=== PATIENT | female | born 1985 | race Caucasian/White ===

== ENCOUNTER 2019-09-02 01:03 | Inpatient (IN) | payer SELFPAY ==
[~2019-09-02] VITALS: Ht 160 cm; Wt 60.7 kg
[2019-09-02] VITALS (12 sets, daily range): BP systolic 118–150; BP diastolic 73–106
[~2019-09-02 01:03] MED LIST: ALBU2.5V8 INH; IPRA3AMP29 NEB
[2019-09-02 01:45] LABS: BASO # 0.1 x10^3/uL (0.0-0.2); BASO % 1 % (0-3); EOS # 0.5 x10^3/uL (0.0-0.7); EOS % 5 % (0-3); HEMATOCRIT 42.2 % (36.0-47.0); HEMOGLOBIN 14.3 g/dL (12.0-15.5); LYMPH # 3.2 x10^3/uL (1.0-4.8); LYMPH % 30 % (24-48); MEAN CORPUSCULAR HEMOGLOBIN 29 pg (25-35); MEAN CORPUSCULAR HGB CONC 34 g/dL (31-37); MEAN CORPUSCULAR VOLUME 84 fL (79-100); MONO # 1.2 x10^3/uL (0.0-1.1); MONO % 11 % (0-9); NEUT # 5.8 x10^3uL (1.8-7.7); NEUT % 54 % (31-73); PLATELET COUNT 212 x10^3/uL (140-400); RED BLOOD COUNT 5.01 x10^6/uL (3.50-5.40); RED CELL DISTRIBUTION WIDTH 13.8 % (11.5-14.5); WHITE BLOOD COUNT 10.8 x10^3/uL (4.0-11.0)
[2019-09-02 02:00] LABS: ALBUMIN 3.2 g/dL (3.4-5.0); ALBUMIN/GLOBULIN RATIO 0.7 (1.0-1.7); CALCIUM 9.1 mg/dL (8.5-10.1); GFR 62.7; TOTAL BILIRUBIN 0.3 mg/dL (0.2-1.0); TOTAL PROTEIN 7.8 g/dL (6.4-8.2)
[2019-09-02 02:05] LABS: POTASSIUM 2.6 mmol/L (3.5-5.1)
--- NOTE | 2019-09-02 02:12 | RAD ---
AP portable chest radiograph 09/01/2019 Clinical History: Chest pain. An AP erect portable digital radiograph of the chest was obtained. A right internal jugular central venous catheter is seen with its tip extending to overlie the superior vena cava. The cardiac and mediastinal silhouettes are within normal limits in size and configuration. No acute pulmonary infiltrate is seen. No pleural effusion or pneumothorax is noted. The osseous structures are grossly intact. IMPRESSION: No acute abnormality is seen. Electronically signed by: Laron Cope MD (09/02/2019 2:09 AM) [id number]
[2019-09-02] MEDS ORDERED: POTASSIUM CHLORIDE 20 MEQ TABLET.ER. PO ONE ×2 (02:15→02:30)
--- NOTE | 2019-09-02 02:20 | PHYS DOC ---
Past History Past Medical History: Asthma, Diabetes, Other Additional Past Medical Histor: cervical/uterine CA-told can't do anything spread to far Past Surgical History: No Surgical History Alcohol Use: None Drug Use: None General Adult EDM: Chief Complaint: CHEST PAIN HPI: HPI: 34-year-old female presents with chest pain. The patient has been having intermittent chest discomfort which she describes as a tightness and spasming sensation. Tonight, the patient had an episode where she felt suddenly weak, collapsed to the floor and felt like she had cramping muscles all over. The pain then radiated up into her chest and she had chest pain that lasted for about 40 minutes and began to subside right before EMS transport. Patient states she has had a heart attack in the past. She tells me that she has terminal cervical and uterine cancer. She is on high-dose pain medications such as Dilaudid. She has a right-sided PICC line. Patient denies fever chills. Review of Systems: Review of Systems: Constitutional: Denies fever or chills Eyes: Denies change in visual acuity HENT: Denies nasal congestion or sore throat Respiratory: Denies cough or shortness of breath Cardiovascular: Chest pain GI: Denies abdominal pain, nausea, vomiting, bloody stools or diarrhea : Denies dysuria Musculoskeletal: Generalized muscle cramping Integument: Denies rash Neurologic: Denies headache, focal weakness or sensory changes Endocrine: Denies polyuria or polydipsia Lymphatic: Denies swollen glands Psychiatric: Denies depression or anxiety Heart Score: HEART Score for Chest Pain: HEART Score for Chest Pain Response (Comments) Value History Slighlty/Non-Suspicious 0 ECG Normal 0 Risk Factors 1 or 2 Risk Factors 1 Total 1 Risk Factors: Risk Factors: DM, Current or recent (<one month) smoker, HTN, HLP, family history of CAD, obesity. Risk Scores: Score 0 - 3: 2.5% MACE over next 6 weeks - Discharge Home Score 4 - 6: 20.3% MACE over next 6 weeks - Admit for Clinical Observation Score 7 - 10: 72.7% MACE over next 6 weeks - Early Invasive Strategies Current Medications: Current Meds: Current Medications Medications (Trade) Dose Ordered Sig/Kathy Start Time Stop Time Status Last Admin Dose Admin Hydromorphone HCl (Dilaudid) 1 mg 1X ONCE 09/02/19 02:30 09/02/19 02:31 Ondansetron HCl (Zofran) 4 mg 1X ONCE 09/02/19 02:30 09/02/19 02:31 Potassium Chloride/Sodium Chloride 1,000 ml @ 125 mls/hr 1X ONCE 09/02/19 02:30 09/02/19 10:29 Potassium Chloride (Klor-Con) 40 meq 1X ONCE 09/02/19 02:30 09/02/19 02:31 Allergies: Allergies: Allergies Coded Allergies Type Severity Reaction Last Updated Verified Sulfa (Sulfonamide Antibiotics) Allergy Unknown 11/25/15 Yes diphenhydramine Allergy Unknown 11/25/15 Yes ketorolac Allergy Unknown 11/25/15 Yes morphine Allergy Unknown 11/25/15 Yes sulfamethoxazole Allergy Unknown 11/25/15 Yes trimethoprim Allergy Unknown 11/25/15 Yes Physical Exam: PE: Constitutional: Well developed, well nourished, no acute distress, non-toxic appearance. [] HENT: Normocephalic, atraumatic, bilateral external ears normal, oropharynx moist, no oral exudates, nose normal. [] Eyes: PERRLA, EOMI, conjunctiva normal, no discharge. [] Neck: Normal range of motion, no tenderness, supple, no stridor. [] Cardiovascular: Heart rate regular rhythm, no murmur [] Lungs & Thorax: Bilateral breath sounds clear to auscultation [] Abdomen: Bowel sounds normal, soft, no tenderness, no masses, no pulsatile masses. [] Skin: Right chest wall central line with no cap. [] Back: No tenderness, no CVA tenderness. [] Extremities: No tenderness, no cyanosis, no clubbing, ROM intact, no edema. [] Neurologic: Alert and oriented X 3, normal motor function, normal sensory function, no focal deficits noted. [] Psychologic: Affect normal, judgement normal, mood anxious. [] Current Patient Data: Labs: Laboratory Tests Test 09/02/19 01:30 White Blood Count 10.8 x10^3/uL (4.0-11.0) Red Blood Count 5.01 x10^6/uL (3.50-5.40) Hemoglobin 14.3 g/dL (12.0-15.5) Hematocrit 42.2 % (36.0-47.0) Mean Corpuscular Volume 84 fL (79-100) Mean Corpuscular Hemoglobin 29 pg (25-35) Mean Corpuscular Hemoglobin Concent 34 g/dL (31-37) Red Cell Distribution Width 13.8 % (11.5-14.5) Platelet Count 212 x10^3/uL (140-400) Neutrophils (%) (Auto) 54 % (31-73) Lymphocytes (%) (Auto) 30 % (24-48) Monocytes (%) (Auto) 11 % (0-9) H Eosinophils (%) (Auto) 5 % (0-3) H Basophils (%) (Auto) 1 % (0-3) Neutrophils # (Auto) 5.8 x10^3uL (1.8-7.7) Lymphocytes # (Auto) 3.2 x10^3/uL (1.0-4.8) Monocytes # (Auto) 1.2 x10^3/uL (0.0-1.1) H Eosinophils # (Auto) 0.5 x10^3/uL (0.0-0.7) Basophils # (Auto) 0.1 x10^3/uL (0.0-0.2) Sodium Level 136 mmol/L (136-145) Potassium Level 2.6 mmol/L (3.5-5.1) *L Chloride Level 96 mmol/L (98-107) L Carbon Dioxide Level 26 mmol/L (21-32) Anion Gap 14 (6-14) Blood Urea Nitrogen 19 mg/dL (7-20) Creatinine 1.0 mg/dL (0.6-1.0) Estimated GFR (Cockcroft-Gault) 62.7 BUN/Creatinine Ratio 19 (6-20) Glucose Level 95 mg/dL (70-99) Calcium Level 9.1 mg/dL (8.5-10.1) Total Bilirubin 0.3 mg/dL (0.2-1.0) Aspartate Amino Transferase (AST) 36 U/L (15-37) Alanine Aminotransferase (ALT) 49 U/L (14-59) Alkaline Phosphatase 104 U/L (46-116) Troponin I Quantitative < 0.017 ng/mL (0-0.055) Total Protein 7.8 g/dL (6.4-8.2) Albumin 3.2 g/dL (3.4-5.0) L Albumin/Globulin Ratio 0.7 (1.0-1.7) L Vital Signs: Vital Signs Date Time Temp Pulse Resp B/P (MAP) Pulse Ox O2 Delivery O2 Flow Rate FiO2 09/02/19 01:03 18 129/90 (103) Room Air EKG: EKG: Sinus rhythm, rate 91, leftward axis, no ST elevations or depressions. [] Radiology/Procedures: Radiology/Procedures: [] Impressions: AP portable chest radiograph 09/01/2019 Clinical History: Chest pain. An AP erect portable digital radiograph of the chest was obtained. A right internal jugular central venous catheter is seen with its tip extending to overlie the superior vena cava. The cardiac and mediastinal silhouettes are within normal limits in size and configuration. No acute pulmonary infiltrate is seen. No pleural effusion or pneumothorax is noted. The osseous structures are grossly intact. IMPRESSION: No acute abnormality is seen. Electronically signed by: Laron Espino MD (09/02/2019 2:09 AM) [id number] DICTATED AND SIGNED BY: LARON ESPINO MD DATE: 09/02/19 0209 CC: ADRIANA MORRIS DO; PCP,NO ~ Course & Med Decision Making: Course & Med Decision Making Pertinent Labs and Imaging studies reviewed. (See chart for details) The patient's EKG is unremarkable. Her troponin is negative. Her chest x-ray is negative for acute findings. It does show a central line. See official report for details. Her labs do have a critical potassium of 2.6. We will give her potassium by IV as well as orally. I will admit her to the hospital. I spoke with Dr. Ramirez and he has accepted the patient for admission. I have given the patient 4 mg of Zofran and 2 milligram of Dilaudid IV. [] Dragon Disclaimer: Dragon Disclaimer: This electronic medical record was generated, in whole or in part, using a voice recognition dictation system. Departure Departure: Impression: Primary Impression: Hypokalemia Additional Impressions: Chest pain Qualified Codes: R07.9 - Chest pain, unspecified Uterine cervix cancer Qualified Codes: C53.9 - Malignant neoplasm of cervix uteri, unspecified Disposition: 09 ADMITTED INPATIENT Admitting Physician: Benjamin Ramirez Condition: STABLE Referrals: PCP,NO (PCP) ADRIANA MORRIS DO September 02, 2019 02:20
[2019-09-02] MEDS ORDERED: HYDROmorphone PF 1 MG/ML DISP.SYRIN IV ONE (02:30)
[2019-09-02] MEDS ORDERED: HYDROmorphone PF 1 MG/ML DISP.SYRIN IV PRN (02:30)
[2019-09-02] MEDS ORDERED: POTASSIUM CL 40MEQ IN 0.9%NACL 1,000 ML IV ONE (02:30)
[2019-09-02] MEDS ORDERED: ONDANSETRON PF 4 MG/2 ML VIAL. IVP ONE ×2 (02:30→04:00)
[2019-09-02] MEDS ORDERED: ONDANSETRON PF 4 MG/2 ML VIAL. IVP PRN (02:30)
[2019-09-02] MEDS ORDERED: HYDROmorphone PF 2 MG/ML VIAL IV ONE (03:00)
[2019-09-02] MEDS: POTASSIUM CHLORIDE 20 MEQ TABLET.ER. PO SCH ×3 (05:35→06:29)
[2019-09-02] MEDS ORDERED: CONTRAST GIVEN MC PRN (05:45)
[2019-09-02] MEDS ORDERED: IOHEXOL 350 MG/ML 100 ML VIAL. IV ONE (06:00)
[2019-09-02] MEDS: POTASSIUM CHLORIDE 10MEQ 100 ML IV SCH ×8 (06:00→13:00)
[2019-09-02 06:17] LABS: BARBITURATES POS (NEG); BENZODIAZEPINES NEG (NEG); CANNABINOIDS NEG (NEG); COCAINE NEG (NEG); METHADONE NEG (NEG); OPIATES POS (NEG); PHENCYCLIDINE NEG (NEG)
[2019-09-02 06:22] LABS: AMPHETAMINE/METHAMPHETAMINE NEG (NEG)
[2019-09-02] MEDS: HYDROmorphone PF 1 MG/ML DISP.SYRIN IV PRN ×4 (06:22→12:15)
[2019-09-02] MEDS ORDERED: ANTI-COAG MONITOR BY PHARMACY. MC PRN (06:30)
[2019-09-02] MEDS: ENOXAPARIN ** NOTE DOSE ** SYRINGE SQ SCH ×2 (06:30→21:51)
--- NOTE | 2019-09-02 06:41 | EKG ---
[address] [address] Test Date: 2019-09-02 Test Time: 01:17:56 Pat Name: LIAN RODRIGUEZ Department: Room: 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
--- NOTE | 2019-09-02 08:11 | EKG ---
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
--- NOTE | 2019-09-02 08:38 | PDOC2 ---
CARDIAC CONSULT DATE OF CONSULT Date Of Consult DATE: 09/02/19 TIME: 08:14 REASON FOR CONSULT Reason for Consult Chest pain, elevated troponin REFERRING PHYSICIAN Referring Physician Dr. Ramirez SOURCE Source: Chart review, Patient HPI History of Present Illness This is a 34 yo female who presented secondary to increased chest pain and shortness. Patient presently incoherent. Trashing in bed and moaning in pain. Discussed case with both sister and boyfriend. Patient has a history of endometrial and cervical CA. Diagnosed 2018. Underwent bilateral fallopian tube removal. This was conducted through [facility]. Has second opinion at , which is noted below. Family reports her cancer to be advanced and terminal. Sister reports she has be praying for God to take her to end her pain. Family reports that she has been with Hospice since late last year. Was on Dilaudid NEON ELECTRICIAN pump. Unfortunately, this was discontinued last week due to reported national shortage. Was started on oral therapy at that time. Boyfriend, who she reside with, reports she has not been doing well this past week since they discontinued her pain pump. Has been having markedly increased pain including chest pain and has been more weak. Over the weekend, there was reported concerns of potential overdose as her bottle of ketamine was broke open. Boyfriend thinks she possibly fell and broke the bottle open as it was knocked over and smashed. Nonetheless, she was recommend to go to the [facility] for increasing pain or to the ED for further evaluation and treatment. Patient declined both of these and the decision was made to discontinue services through Hospice. Yesterday, boyfriend reports she was carrying laundry down the stairs and experienced significant chest pain and shortness of breath. Boyfriend reports she dropped to her knees and told him to call 911. EMS transported her to the ED department for further evaluation and treatment. Boyfriend reports her chest pain to be somewhat chronic in nature. EKG with ischemic changes overnight and troponin noted to elevated upon arrival. D-dimer also elevated. Unfortunately, have been unable to get CTA as patient is thrashing and unable to sit still for imaging. Records from ; [employer] office visit. Date 04/30/18 History of Present Illness: Janice Retana is a 33 y.o. 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 Feeling well overall. Complains of increased anxiety, fatigue. Has sinus pressure, sore throat and recent voice changes. Few month history of irregular bleeding, pelvic pain, abnormal discharge, vaginal pain and dysuria. Endometrial cancer (HCC) 03/10/2018 Pertinent History Pap ASC-H, HPV neg 03/25/2018 Imaging MRI - intermediate T2 signal material in endometrial canal 2.9x1.1x2.8 cm with smaller area in endocervical canal 1.8x0.5 cm. No evidence of invasion into the myometrium. No pelvic lymphadenopathy. 03/25/2018 Imaging MRI - ~3cm mass at the fundus, similar 1.8cm mass in the endocervical canal, no noted invasion into the myometrium or parametrium 04/03/2018 Surgery [facility], [facility], D&C 04/03/2018 Pathology * Cervix excision - Invasive keratinizing poorly differentiated squamous cell carcinoma, involving endocervical, ectocervical, and deep resection margins. * ECC- Negative for dysplasia or malignancy. * EMC: Endometrioid adenocarcinoma, FIGO grade 1 04/03/2018 Surgery [facility], D&C with Dr Arian Ngo - Findings cervix 4cm in diameter, no evidence of parametrial invasion 04/14/[address] - No evidence of metastatic disease 04/21/2018 Imaging PET - Hypermetabolic mass occupying the fundus of the uterus, correlating with the lesion see on recent pelvic MRI. This is a smaller and less metabolically a ctive focus of increased uptake in the region of the cervix which appears to correlate with the nodule seen on recent MR. No gross evidence of regional or distant metastatic disease 04/28/2018 Pertinent History Post op fu - recommendation for chemoradiation for treatment of endometrial and cervical cancer followed by simply hysterectomy ASSESSMENT/PLAN: Jancie Retana is a 33 y.o. 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 Reviewed imaging, operative reports and path with patient. Initial plan on a second path review here and to review in tumor board. An extensive discussion was held with the patient over approximately 45 minutes, during which time we discussed the treatment options for early stage cervical carcinoma. We discussed that these tumors can be treated either surgically or with radiation therapy. I noted that if the lesion meets the criteria for microinvasion and is thus associated with a low risk for parametrial or lymph node metastasis, that consideration can be given to treatment of the cancer with extrafascial hysterectomy. Otherwise, the treatment of choice would be a radical hysterectomy and pelvic lymphadenectomy versus radiation therapy comprised both of external beam radiation therapy and brachytherapy if the lesion is of early stage. We discussed the potential risks for either radiation therapy or surgical treatment. With regard to surgical treatment, I noted that the risks are primarily the risks related to an operation, although I noted that with a pelvic lymphadenectomy that there is the risk for lymphedema and lymphocysts. We also discussed the relatively common occurrence of bladder dysfunction that can occur after radical hysterectomy and also, we discussed the low risk of injury to the GI or tract with radical hysterectomy as well as the low risk of significant perioperative medical complications. With regard to radiation therapy, I noted that radiation therapy treatment is tolerated extremely well but that the risks are more jail, including the risks of significant damage occurring in the GI or tract, the risk of developing a tumor in the radiated field, the risk of developing a noncompliant and foreshortened vagina, and the risk of premature ovarian failure. We also discussed her diagnosis of low grade endometrial adenocarcinoma. A detailed discussion was held with the patient with regard to to her cancer diagnosis. We discussed the standard management options for uterine cancer, noting that the standard of care involved surgical staging followed by consideration of adjuvant therapies including hormone therapy, chemotherapy, or radiation therapy if indicated. We discussed alternatives to surgery including radiation therapy and hormonal therapy noting that these are not as effective as surgery for definitive treatment of uterine cancer. We discussed the surgical staging approach which involves performing hysterectomy, bilateral salpingo- oophorectomy, possible omentectomy, and pelvic and periaortic lymph node sampling. We discussed operative approaches including robotic versus conventional laparotomy and the pros and cons of either approach. I also di scussed data from the Lap 2 study, which did not prove non inferiority of a laparoscopic approach over a open approach, but which was not powered sufficiently to do so, and survival rates were identical in the two arms of the study. Reviewed treatment modalities for her concurrent diagnosis. Discussed that a radical hysterectomy could treat both and my operative and path findings, she appears to be a candidate for surgical mgmt of her cervical cancer. It should be noted that patient left before due to anxiety before a pelvic exam could be performed and did not want to schedule follow up. We did give her a card with contact information. Prior to her leaving, we discussed treatment options. Pt is very hesitant to consider radical hysterectomy and expressed interest in chemoradiation (but said she did not want chemotherapy.) If this was the treatment modality, I would recommend an attempt at oophoropexy prior to starting in an attempt to protect her ovarian function. We did discuss the 50% failure rate. We also reviewed this could be done at time of radical hysterectomy to protect her ovaries if she required adjuvant radiation. If proceeding with radiation, we reviewed that this could treat both her cervical and her endometrial cancers. I would be concerned about risk of complications with following radiation with hysterectomy if no evidence of residual disease. Pt said she would consider these treatment options but refused exam today due to anxiety. Did not want to schedule follow up at this time. Today's visit comprised over 55 minutes, with most of the time dedicated to face to face discussion. Fernando Harp MD PAST MEDICAL HISTORY Pulmonary: Asthma Heme/Onc: Cancer (advanced cervical and uterine CA) Endocrine: Diabetes PAST SURGICAL HISTORY Past Surgical History: No pertinent history FAMILY HISTORY Family History: Diabetes, Hypertension SOCIAL HISTORY Smoke: 1 pack per day ALCOHOL: none Drugs: None Lives: Friends (boyfriend) CURRENT MEDICATIONS Current Medications Current Medications Hydromorphone HCl (Dilaudid) 1 mg 1X ONCE IV Last administered on 09/02/19at 02:22; Start 09/02/19 at 02:30; Stop 09/02/19 at 02:31; Status DC Ondansetron HCl (Zofran) 4 mg 1X ONCE IVP Last administered on 09/02/19at 02:21; Start 09/02/19 at 02:30; Stop 09/02/19 at 02:31; Status DC Potassium Chloride (Klor-Con) 40 meq 1X ONCE PO Last administered on 09/02/19at 02:23; Start 09/02/19 at 02:30; Stop 09/02/19 at 02:31; Status DC Potassium Chloride/Sodium Chloride 1,000 ml @ 125 mls/hr 1X ONCE IV Last administered on 09/02/19at 02:23; Start 09/02/19 at 02:30; Stop 09/02/19 at 10:29 Potassium Chloride (Klor-Con) 20 meq STK-MED ONCE PO ; Start 09/02/19 at 02:15; Stop 09/02/19 at 02:15; Status DC Ondansetron HCl (Zofran) 4 mg PRN Q4HRS PRN IVP NAUSEA/VOMITING; Start 09/02/19 at 02:30; Stop 09/03/19 at 02:29 Hydromorphone HCl (Dilaudid) 1 mg PRN Q2HR PRN IV PAIN Last administered on 09/02/19at 03:03; Start 09/02/19 at 02:30; Stop 09/02/19 at 06:17; Status DC Hydromorphone HCl (Dilaudid) 2 mg 1X ONCE IV ; Start 09/02/19 at 03:00; Stop 09/02/19 at 03:01; Status DC Ondansetron HCl (Zofran) 4 mg 1X ONCE IVP Last administered on 09/02/19at 03:33; Start 09/02/19 at 04:00; Stop 09/02/19 at 04:01; Status DC Lorazepam (Ativan Inj) 1 mg 1X ONCE IVP Last administered on 09/02/19at 05:35; Start 09/02/19 at 05:30; Stop 09/02/19 at 05:31; Status DC Potassium Chloride (Klor-Con) 40 meq Q1HR PO Last administered on 09/02/19at 05:35; Start 09/02/19 at 05:00; Stop 09/02/19 at 07:01; Status DC Iohexol (Omnipaque 350 Mg/ml) 75 ml 1X ONCE IV ; Start 09/02/19 at 06:00; Stop 09/02/19 at 06:01; Status DC Info (Do NOT chart on this entry -- for MONITORING) 1 each PRN DAILY PRN MC SEE COMMENTS; Start 09/02/19 at 05:45; Stop 09/04/19 at 05:44 Potassium Chloride 100 ml @ 100 mls/hr Q1H IV ; Start 09/02/19 at 06:00; Stop 09/02/19 at 09:59 Potassium Chloride 100 ml @ 100 mls/hr Q1H IV ; Start 09/02/19 at 10:00; Stop 09/02/19 at 13:59 Enoxaparin Sodium (Lovenox 60mg Syringe) 60 mg Q12HR SQ ; Start 09/02/19 at 06:30 Info (Anti-Coagulation Monitoring By Pharmacy) 1 each PRN DAILY PRN MC SEE COMMENTS; Start 09/02/19 at 06:30 Hydromorphone HCl (Dilaudid) 2 mg PRN Q3HRS PRN IV PAIN Last administered on 09/02/19at 08:02; Start 09/02/19 at 06:15 Enoxaparin Sodium (Lovenox 60mg Syringe) 60 mg Q12HR SQ ; Start 09/02/19 at 09:00; Status UNV Aspirin (Aspirin Rectal Supp) 300 mg 1X ONCE IA ; Start 09/02/19 at 08:15; Stop 09/02/19 at 08:16; Status UNV Active Scripts Active Reported Duoneb 0.5-3(2.5) Mg/3 Ml (Albuterol/Ipratropium) 3 Ml Ampul.neb 3 Ml NEB QID Proair Hfa Inhaler (Albuterol Sulfate) 8.5 Gm Hfa.aer.ad 1 Puff INH PRN Q6HRS PRN ALLERGIES Allergies: Coded Allergies: Sulfa (Sulfonamide Antibiotics) (Verified Allergy, Unknown, 11/25/15) diphenhydramine (Verified Allergy, Unknown, 11/25/15) ketorolac (Verified Allergy, Unknown, 11/25/15) morphine (Verified Allergy, Unknown, 11/25/15) sulfamethoxazole (Verified Allergy, Unknown, 11/25/15) trimethoprim (Verified Allergy, Unknown, 11/25/15) ROS Review of Systems unobtainable PHYSICAL EXAM General: Alert, mild distress, Other (moaning ) HEENT: Atraumatic, Mucous membr. moist/pink Lungs: Clear to auscultation Heart: Other (ST- rate 125) Abdomen: Soft Extremities: No edema Skin: No breakdown Neuro: Other (thrashing in bed) Psych/Mental Status: Other (incoherent ) VITALS Vital Signs Vital Signs Date Time Temp Pulse Resp B/P (MAP) Pulse Ox O2 Delivery O2 Flow Rate FiO2 09/02/19 08:02 93 Room Air 0.0 09/02/19 06:22 34 09/02/19 05:00 125 130/88 (102) 09/02/19 04:00 97.0 LABS LABS Laboratory Tests Test 09/02/19 01:30 09/02/19 04:45 09/02/19 05:20 09/02/19 05:44 White Blood Count 10.8 x10^3/uL (4.0-11.0) Red Blood Count 5.01 x10^6/uL (3.50-5.40) Hemoglobin 14.3 g/dL (12.0-15.5) Hematocrit 42.2 % (36.0-47.0) Mean Corpuscular Volume 84 fL (79-100) Mean Corpuscular Hemoglobin 29 pg (25-35) Mean Corpuscular Hemoglobin Concent 34 g/dL (31-37) Red Cell Distribution Width 13.8 % (11.5-14.5) Platelet Count 212 x10^3/uL (140-400) Neutrophils (%) (Auto) 54 % (31-73) Lymphocytes (%) (Auto) 30 % (24-48) Monocytes (%) (Auto) 11 % (0-9) Eosinophils (%) (Auto) 5 % (0-3) Basophils (%) (Auto) 1 % (0-3) Neutrophils # (Auto) 5.8 x10^3uL (1.8-7.7) Lymphocytes # (Auto) 3.2 x10^3/uL (1.0-4.8) Monocytes # (Auto) 1.2 x10^3/uL (0.0-1.1) Eosinophils # (Auto) 0.5 x10^3/uL (0.0-0.7) Basophils # (Auto) 0.1 x10^3/uL (0.0-0.2) D-Dimer (Aliya) 2.56 mg/L (0.00-0.50) Sodium Level 136 mmol/L (136-145) Potassium Level 2.6 mmol/L (3.5-5.1) Chloride Level 96 mmol/L (98-107) Carbon Dioxide Level 26 mmol/L (21-32) Anion Gap 14 (6-14) Blood Urea Nitrogen 19 mg/dL (7-20) Creatinine 1.0 mg/dL (0.6-1.0) Estimated GFR (Cockcroft-Gault) 62.7 BUN/Creatinine Ratio 19 (6-20) Glucose Level 95 mg/dL (70-99) Calcium Level 9.1 mg/dL (8.5-10.1) Total Bilirubin 0.3 mg/dL (0.2-1.0) Aspartate Amino Transf (AST/SGOT) 36 U/L (15-37) Alanine Aminotransferase (ALT/SGPT) 49 U/L (14-59) Alkaline Phosphatase 104 U/L (46-116) Troponin I Quantitative < 0.017 ng/mL (0-0.055) 0.153 ng/mL (0-0.055) Total Protein 7.8 g/dL (6.4-8.2) Albumin 3.2 g/dL (3.4-5.0) Albumin/Globulin Ratio 0.7 (1.0-1.7) Glucose (Fingerstick) 214 mg/dL (70-99) Urine Opiates Screen Pos (NEG) Urine Methadone Screen Neg (NEG) Urine Barbiturates Pos (NEG) Urine Phencyclidine Screen Neg (NEG) Urine Amphetamine/Methamphetamine Neg (NEG) Urine Benzodiazepines Screen Neg (NEG) Urine Cocaine Screen Neg (NEG) Urine Cannabinoids Screen Neg (NEG) Urine Ethyl Alcohol Neg (NEG) ASSESSMENT/PLAN Assessment/Plan 1. Endometrial and cervical CA. Family reports as terminal. Specific staging unknown. Was with Hospice; service was discontinued 08/29 as she did not follow their recommendation 2. Chronic pain associated with above; was on Dilaudid NEON ELECTRICIAN, but this was discontinued last week due to reported "national shortage". Patient converted to oral pain control 3. Chest pain, elevated troponin; highest 0.5. EKG with diffuse ST changes suggestive of ischemia. Discuss this with sister, Sarika. She would like to defer further aggressive workup/treatment given advanced, terminal CA and would like to make patient a DNR. 4. Hypokalemia, Hypomagnesemia; being replace. Having difficulty as patient not able to take oral and has pulled out IVs 5. Elevated d-dimer; CTA ordered, but unable to complete as patient was unable to lay still 6. Diabetes, II 7. Metabolic encephalopathy; ? withdrawal Recommendations ASA Lovenox therapy. Family wishes conservative measures given terminal CA, which is very appropriate Supportive care Please call with questions. SHANE ADAMS APRN September 02, 2019 08:38
[2019-09-02] MEDS ORDERED: ENOXAPARIN ** NOTE DOSE ** SYRINGE SQ SCH (09:00)
[2019-09-02 09:25] LABS: ALBUMIN 2.2 g/dL (3.4-5.0); ALBUMIN/GLOBULIN RATIO 0.6 (1.0-1.7); CREATININE 0.9 mg/dL (0.6-1.0); GFR 70.8; POTASSIUM 3.2 mmol/L (3.5-5.1); TOTAL BILIRUBIN 0.3 mg/dL (0.2-1.0); TOTAL PROTEIN 6.2 g/dL (6.4-8.2)
--- NOTE | 2019-09-02 09:55 | EKG ---
[address] [address] Test Date: 2019-09-02 Test Time: 07:53:55 Pat Name: LIAN RODRIGUEZ Department: Room: [id number] 1 Gender: F Distribution Spec: : 1985 Requested By: SHANE ADAMS Order Number: [id number] Reading MD: Britton May MD Measurements Intervals [place] Rate: 154 P: NC: QRS: -26 QRSD: 68 T: 75 QT: 268 QTc: 432 Interpretive Statements SVT HYPERACUTE T WAVE CHANGES, SUGGESTIVE OF ISCHEMIA Electronically Signed On 09-02-2019 11:24:10 CDT by Britton May MD
[2019-09-02] MEDS ORDERED: ASPIRIN RECTAL 300 MG SUPP. PR ONE (10:00)
[2019-09-02] MEDS ORDERED: OLANZapine IM 10 MG VIAL. IM PRN (10:00)
[2019-09-02] MEDS: NICOTINE 21MG PATCH. TD SCH (10:02)
[2019-09-02] MEDS ORDERED: MAGNESIUM SULFATE 2GM 50 ML IV ONE (12:45)
[2019-09-02] MEDS: HYDROmorphone PF 2 MG/ML VIAL IV PRN ×4 (13:42→22:06)
--- NOTE | 2019-09-02 16:03 | RAD ---
EXAM: CT head without contrast INDICATION: Altered mental status, possible metastatic disease. History of uterine cancer. COMPARISON: CT head 05/14/2016 TECHNIQUE: Axial CT imaging through the head without intravenous contrast. One or more of the following individualized dose reduction techniques were utilized for this examination: 1. Automated exposure control 2. Adjustment of the mA and/or kV according to patient size 3. Use of iterative reconstruction technique. FINDINGS: The exam is limited due to extensive motion artifact. The ventricles and sulci are normal. Nogueira-white matter differentiation is maintained. There is no intracranial hemorrhage, acute infarct, or definite mass lesion. Basal cisterns are clear. The skull and scalp are intact. Paranasal sinuses and mastoid air cells are clear. Globes and orbits are intact. IMPRESSION: Limited exam due to extensive motion artifact. No definite acute abnormality. Of note, MRI is more sensitive for intracranial metastatic disease. Electronically signed by: Sil Rivas MD (09/02/2019 4:00 PM) [id number]
--- NOTE | 2019-09-02 16:04 | RAD ---
Exam: CT chest, abdomen, and pelvis without intravenous contrast Indication: Altered mental status, possible metastatic disease. History of uterine cancer. Comparison: None Technique: Helical CT imaging performed of the chest, abdomen and pelvis without intravenous contrast. Sagittal and coronal reformats were obtained. One or more of the following individualized dose reduction techniques were utilized for this examination: 1. Automated exposure control 2. Adjustment of the mA and/or kV according to patient size 3. Use of iterative reconstruction technique. Findings: Exam is limited due to motion artifact. CHEST: Thyroid gland and thoracic inlet: Unremarkable. Heart and great vessels: Heart is normal in size. No pericardial effusion. Thoracic aorta is normal in caliber. A right internal jugular central venous catheter tip terminates at the superior cavoatrial junction. Mediastinum and pk: No lymphadenopathy. Lungs and pleura: Evaluation limited due to motion artifact. There is a small right pleural effusion and adjacent linear atelectasis. Mild consolidative and groundglass opacities in the posterior right upper lobe. Chest wall and axilla: Breast tissue is symmetric. No axillary lymphadenopathy. Bones: No definite acute osseous abnormality. ABDOMEN AND PELVIS: Liver: Normal. Gallbladder/Biliary Tree: Normal. Pancreas: Normal. Spleen: Normal. Adrenal Glands: Normal. Kidneys/Ureters/Bladder: Kidneys are normal size. No nephrolithiasis or hydronephrosis. Ureters are nondilated. Urinary bladder is decompressed around a Segura catheter. Reproductive Organs: Uterus is anteverted. No adnexal mass. Stomach, small bowel, and colon: Stomach is mildly distended with gas. No small bowel obstruction. Colon is unremarkable. Vasculature: No aortic aneurysm. Lymph Nodes: No lymphadenopathy. Peritoneum and retroperitoneum: No free fluid or free air. Bones: No acute osseous abnormality. Mild lower lumbar facet arthrosis. Other: Soft tissue stranding and subcutaneous gas in the right lower abdominal wall is likely related to medication injection. IMPRESSION: 1. Limited exam due to motion artifact. 2. Mild consolidative and groundglass opacities in the posterior right upper lobe suspicious for pneumonia. Small right pleural effusion and right basilar atelectasis. 3. No acute abnormality in the abdomen and pelvis. Electronically signed by: Sil Rivas MD (09/02/2019 4:01 PM) [id number]
--- NOTE | 2019-09-02 16:06 | HP ---
ADMIT DATE: 09/02/2019 HISTORY OF PRESENT ILLNESS: The patient is a 34-year-old female patient who presented to the Emergency Room with a complaint of chest pain. Apparently, she has been having intermittent chest discomfort. She describes it as tightness and spasming sensation. Last night, the patient had an episode where she feels suddenly weak, collapsed to the floor and felt like she had cramping muscles all over. The pain then radiated up into her chest and she had chest pain that lasted about 40 minutes and began to subside right before EMS transport. She stated that she has had a heart attack in the past. She stated that she has terminal cervical uterine cancer. She is on high dose pain medication such as Dilaudid and she does have right sided PICC line; although, on arrival to the Emergency Room, she denied any chills, rigors or fever. She was extensively investigated in the Emergency Room, had lab work done including her CBC, chemistry. Her D-dimer was high at 2.56. Her toxic screen was positive for opiates and barbiturates. She had had a chest x-ray, which was unremarkable. We attempted to do CT angio of the chest, but the patient was extremely agitated, restless, combative; therefore, we did start her on Lovenox 1 mg/kg subcutaneously twice a day. 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 PAST SURGICAL HISTORY: Significant for dilatation and curettage as well, biopsy done on 04/03/2018. FAMILY HISTORY: Significant for the fact the patient and sibling are positive for cancer, in her mother. Her father has a heart attack. SOCIAL HISTORY: She lives with her boyfriend for the last 4 months. She apparently is . She apparently a smoker and smokes, and has been on hospice for almost a year now on a huge amount of large dose of hydromorphone. She was supposed to go to hospice house, but she refused to go and basically the [facility] discharged her from their care. ALLERGIES: SHE IS ALLERGIC TO BACTRIM, BENADRYL, COMPAZINE, FLEXERIL, HALDOL, PAPER TAPE, SULFA DRUGS AND TORADOL. SHE IS ALSO ALLERGIC TO CEPHALEXIN, FENTANYL, AND MORPHINE. MEDICATIONS: She has been on hydromorphone, I do not have the specifics, but she is also on DuoNeb and albuterol sulfate. PHYSICAL EXAMINATION: GENERAL: On arrival to the Emergency Room, she looked well-developed, well-nourished, in no acute distress, nontoxic in appearance. VITAL SIGNS: Her heart rate on arrival was 89, blood pressure 118/73, temperature was 97, respiratory rate was 10 and oxygen saturation was 93% on 4 liters of oxygen. HEAD, EYES, EARS, NOSE AND THROAT: Showed she is normocephalic, atraumatic. NECK: Supple. HEART: Showed normal first and second heart sounds. No gallop, rub or murmur. CHEST: Clear to auscultation. No crepitation or rhonchi. ABDOMEN: Distended, soft, nontender. No guarding or rigidity. No organomegaly. All hernial orifice intact. Bowel sounds normal. NEUROLOGIC: She was alert, oriented x 3 with normal motor function, normal sensory function, no focal deficit. Her mood was anxious when she was in the Emergency Room. While there, she has had an EKG, which showed that she was in sinus rhythm at a rate of 91 beats per minute, leftward axis, no ST segment elevation. LABORATORY DATA: Showed that her white cell count was 10,800, hemoglobin 14, hematocrit 42, MCV 84 and platelet count 212,000. Her D-dimer was 2.56. Her chemistry showed serum sodium of 136, potassium 2.6, chloride 96, bicarbonate 26, anion gap of 14, BUN 19, creatinine 1, estimated GFR was 62 mL per minute, her glucose was 95, calcium was 9.1. Total bilirubin, AST, ALT, alkaline phosphatase were normal. Total protein was 7.8, albumin 3.2. First set of cardiac enzyme was less than 0.017. Her toxic screen was positive for opiates and barbiturates, negative for methadone, phencyclidine, amphetamine, methamphetamine, benzodiazepine, cocaine, cannabinoids and alcohol. She has had chest x-ray, which basically showed that she has right internal jugular central venous catheter seen with its tip extending to overlie the superior vena cava. The cardiac and mediastinal silhouettes are within normal limits in size and configuration. No acute pulmonary infiltrate is seen. No pleural effusion or pneumothorax is noted. The osseous structures are grossly intact. By the time she arrived to the ICU, the patient has been extremely combative, very restless physically and verbally abusive to the staff. Her potassium was extremely low. She was given some potassium in the Emergency Room. We had tried to give her more and she was unable to or refuse to take it. Her D-dimer was high at 2.56. We tried to do a CT angio of the chest, but the patient was extremely restless, agitated and she cannot stay still in the CT scan and therefore we decided to cancel and started her on Lovenox 1 mg/kg subcutaneously twice a day. Given that she was on hospice for almost more than a year and she was supposed to go to hospice house, a decision was made to consult [facility] to see whether she qualifies for inpatient hospice. So, our plan is basically to order a CT scan of the head, chest, abdomen and pelvis to see the extensive of her tumor involvement. She had had a PET scan done at [facility] on 04/21/2018, which showed that the patient has hypermetabolic mass occupying the fundus of the uterus correlating with the lesion seen on the recent pelvic MRI. Also, there is a smaller and less metabolically active focus of increased uptake in the region of the cervix, this appear to correlate with the nodules seen on the recent MRI. There was no gross evidence of regional or distant metastatic disease at that time. From what I understand from her sister and other nursing staff that she was evaluated at [facility] and she was advised that she needs to have total abdominal hysterectomy and salpingo-oophorectomy, but she refused surgery stating that she wants to be , so my plan is to obviously continue with pain management as she seemed to be very restless, agitated and probably withdrawing from her opiate after she was discharged from [facility]. I will arrange for her to have a CT scan of the head, chest, abdomen and pelvis to see the extent of her malignancy and decide on further management accordingly. GAYLE ALFONSO MD DR: DELGADO/mehreen JOB#: [id number] / [id number]
[2019-09-02] MEDS ORDERED: LIDOCAINE 1% Multi-Dose 20 ML VIAL. IJ ONE (17:00)
[2019-09-02 17:38] LABS: THYROID STIM HORMONE (TSH) 0.94 uIU/mL (0.358-3.740)
[2019-09-02] MEDS ORDERED: AZITHROMYCIN 500 MG in IV NORMAL SALINE 250ML 250 ML IV ONE (18:30)
[2019-09-02] MEDS: VANCOMYCIN PER PHARMACY MC PRN (20:05)
[2019-09-02] MEDS: ACETAMINOPHEN 650 MG SUPP.RECT. PR PRN (20:25)
[2019-09-02] MEDS ORDERED: VANCOMYCIN 1.5 GM in IV NORMAL SALINE 500ML 500 ML IV ONE (21:00)
[2019-09-02] MEDS: IV NORMAL SALINE 1,000ML 1,000 ML IV SCH (21:50)
[2019-09-02] MEDS: PIPERACILLIN/TAZOBACTAM 3.375 GM in IV NORMAL SALINE 50ML 50 ML IV SCH (21:51)
[2019-09-03] VITALS (15 sets, daily range): BP systolic 122–149; BP diastolic 67–90
[2019-09-03] MEDS: HYDROmorphone PF 2 MG/ML VIAL IV PRN ×11 (00:24→23:19)
[2019-09-03] MEDS: ACETAMINOPHEN 650 MG SUPP.RECT. PR PRN ×3 (02:14→19:35)
[2019-09-03] MEDS: PIPERACILLIN/TAZOBACTAM 3.375 GM in IV NORMAL SALINE 50ML 50 ML IV SCH ×3 (05:59→21:52)
[2019-09-03 06:23] LABS: HEMATOCRIT 39.2 % (36.0-47.0); HEMOGLOBIN 12.6 g/dL (12.0-15.5); RED BLOOD COUNT 4.52 x10^6/uL (3.50-5.40); RED CELL DISTRIBUTION WIDTH 14.4 % (11.5-14.5)
[2019-09-03 06:34] LABS: ALBUMIN 2.4 g/dL (3.4-5.0); ALBUMIN/GLOBULIN RATIO 0.6 (1.0-1.7); CALCIUM 7.9 mg/dL (8.5-10.1); CREATININE 0.7 mg/dL (0.6-1.0); GFR 94.7; TOTAL BILIRUBIN 0.5 mg/dL (0.2-1.0); TOTAL PROTEIN 6.5 g/dL (6.4-8.2)
[2019-09-03] MEDS: VANCOMYCIN 750 MG in IV NORMAL SALINE 250ML 250 ML IV SCH ×2 (09:01→20:42)
[2019-09-03] MEDS: IV NORMAL SALINE 1,000ML 1,000 ML IV SCH (09:02)
[2019-09-03] MEDS: ENOXAPARIN ** NOTE DOSE ** SYRINGE SQ SCH ×2 (09:02→20:42)
[2019-09-03] MEDS: NICOTINE 21MG PATCH. TD SCH (09:02)
[2019-09-03 10:44] LABS: BACTERIA,URINE 0 /HPF (0-FEW); BILIRUBIN,URINE NEG (NEG); CLARITY,URINE CLOUDY; COLOR,URINE YELLOW; GLUCOSE,URINE NEG (NEG); NITRITE,URINE NEG (NEG); RBC,URINE >40 /HPF (0-2)
[2019-09-03] MEDS ORDERED: MAGNESIUM SULFATE 2GM 50 ML IV ONE (11:45)
--- NOTE | 2019-09-03 14:37 | RAD ---
Whole body bone scan Clinical indications: Endometrial carcinoma. Staging. COMPARISON: No previous bone scan. TECHNIQUE: After IV infusion of 22.9 mCi of technetium 99m MDP, delayed anterior and posterior planar images of the whole skeleton were performed. FINDINGS: Patient motion artifact is evident. Bilateral renal function is evident. Degenerative activity is seen involving both shoulders and sternoclavicular joints. There is a focus of activity involving the proximal shaft of the right femur. There is soft tissue activity present here as well. There is mild degenerative activity seen involving the superior aspect of the left hip joint and involving the right knee joint. No other abnormal activity is seen. IMPRESSION: Activity is seen involving the proximal shaft of the right femur and adjacent soft tissues. This could be related to trauma and/or stress fracture. Solitary metastasis is not excluded. Correlation with radiographic study is recommended along with clinical correlation. Electronically signed by: Wang Gonzalez MD (09/03/2019 2:34 PM) [facility] [place]
--- NOTE | 2019-09-03 18:37 | PN ---
DATE: 09/03/2019 SUBJECTIVE: The patient is a 34-year-old female patient with endometrial carcinoma and cervical squamous cell carcinoma, who apparently was on hospice. She refused radiation and chemotherapy, wanted safe to have children. Her ovaries were tucked; however, the patient refused to go ahead with chemotherapy or radiation treatment. 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 She had had tunneled PICC line to the right internal jugular vein in the right infraclavicular area. Apparently, her Dilaudid [employer] was discontinued on 08/20/2019 due to National shortage and she was switched to 40 mg of hydromorphone every 4 hours and 30 mg of oxycodone every hour. She was also getting 25 mcg ketamine every 4 hours and the [facility] recommended that she go to hospice house, but the patient refused and ended up in our Emergency Room and we admitted her and I did consult [facility] with a plan to get her in to [facility] as an inpatient hospice. We did yesterday CT scan of the head, chest, abdomen and pelvis and there were really no convincing findings. Her CT scan of the head showed that the ventricles and sulci are normal. Jimenez white matter differentiation is maintained. There is no intracranial hemorrhage, acute infarct or definite mass lesion. The basal cisterns are clear. The skull and scalp are intact. Paranasal sinuses and mastoid air cells are clear. Globes and orbits are intact. We did also CT scan of the chest, abdomen and pelvis and her CT scan of the chest showed thyroid glands and thoracic inlet unremarkable. Heart and great vessels showed no pericardial effusion. Thoracic aorta is normal in caliber. The right internal jugular central venous catheter tip terminates at the superior vena cava cavoatrial junction. The pk and mediastinum showed no lymphadenopathy. The lungs and pleura showed there is small right sided pleural effusion, adjacent linear atelectasis, mild consolidative and ground glass opacities in the posterior right upper lobe, chest wall and axilla. The breasts are symmetric. No axillary lymphadenopathy. Her CT scan of the abdomen and pelvis showed mild consolidation, which showed no acute abnormality in the abdomen and pelvis, and while in the hospital yesterday, she spiked her temperature to 101.7, so we did reeves culture her and we did start her on IV antibiotic in the form of Zosyn and vancomycin given the ground glass appearance, we checked her COVID-19 was negative. She has also severe hypokalemia and hypomagnesemia that were replenished, her potassium has improved from 3.2 to 4. Her troponin has peaked at 0.522. She was seen by the Cardiology nurse practitioner; however, her sister did not want any aggressive treatment. Her EKG did show hyperacute T-wave changes suggestive of ischemia and her QRS abnormalities consistent with an inferior infarct, probably old. We did start her on IV fluid as well as Zosyn and vancomycin. When I saw her today, she was still moaning and groaning. However, she does open her eyes and she responded verbally. She was able to drink some water and she responded when asked whether she was thirsty or hungry, and she said yes, she want to eat or drink. Given the scarcity of finding on her CT scan of the head, chest, abdomen and pelvis, I ordered total body bone scan. Meanwhile, we will continue obviously with antibiotic treatment for the time being. PHYSICAL EXAMINATION: GENERAL: When I examined her this morning, she looked well and was clearly in no apparent respiratory distress. No pallor, jaundice, cyanosis or thyromegaly. No jugular venous distension. No lower limb edema. VITAL SIGNS: Her heart rate was 89, blood pressure was 133/80, temperature was this morning down to 99.4, respiratory rate was 12 and oxygen saturation was 96% on room air. HEAD, EYES, EARS, NOSE AND THROAT: Showed normocephalic, atraumatic. NECK: Supple. CARDIAC: Normal first and second heart sounds. No gallop, rub or murmur. CHEST: Clear to auscultation. No crepitation or rhonchi. ABDOMEN: Distended, soft, nontender. No guarding or rigidity. No organomegaly. All hernial orifice intact. Bowel sounds normal. NEUROLOGIC: She is more awake today, responding appropriately. All her cranial nerves are intact. She moves extremities spontaneously, although she is mostly bedbound. LABORATORY DATA: Her lab work this morning showed a white cell count that has risen up to 19,000; hemoglobin 12.6; hematocrit 39; MCV 87; and platelet count of 192,000. Her serum sodium 140, potassium 4, chloride 107, bicarbonate 19, anion gap of 14, BUN 13, creatinine was 0.7, estimated GFR was 95 mL per minute. Her glucose 133, calcium was 7.9, magnesium was 1.6. Total bilirubin and alkaline phosphatase were normal. AST, ALT have dramatically risen likely a side effect of antibiotic. Her total protein was 6.5, albumin was 2.4. Her D-dimer was high at 2.56. Urinalysis showed that the urine was yellow, cloudy with a pH of 6, specific gravity 1.025. There was small amount of protein. The urine was negative for glucose, large amount of ketones, large amount of blood, negative for nitrite and bilirubin, negative for leukocyte esterase, there are 1-4 wbc's, more than 40 rbc's, and no bacteria. Her COVID-19 by PCR was negative. Toxic screen was positive for opiates and barbiturates. ASSESSMENT: In summary, this is a 34-year-old female patient with: 1. Endometrial carcinoma as well as cervical squamous cell carcinoma. She was on hospice. Apparently, she was in her usual dose of hydromorphone by [employer] at eventually switched to oral hydromorphone at 40 mg every 4 hours and 30 mg of oxycodone every hour. She was also on ketamine although the route is not clear, probably IV. On admission, she has severe hypokalemia and hypomagnesemia. Her chest x-ray showed that she was initially unremarkable; however, CT scan of the chest showed there is a small right sided pleural effusion, adjacent linear atelectasis, mild consolidative and ground glass opacities in the posterior right upper lobe consistent probably with aspiration pneumonia. PLAN: To proceed with total body bone scan. Continue with IV antibiotic and I replenished her magnesium with 2 grams IV. Given her elevated D-dimer, we could not do the CT angio. Therefore, she will continue with Lovenox at 1 mg/kg subcutaneously twice a day. Once she stabilized, then would be able to arrange for her to have a CT angio. We will do that. GAYLE ALFONSO MD DR: DELGADO/mehreen JOB#: [id number] / [id number]
[2019-09-04] MEDS: IV NORMAL SALINE 1,000ML 1,000 ML IV SCH ×2 (00:51→15:52)
[2019-09-04] MEDS: HYDROmorphone PF 2 MG/ML VIAL IV PRN ×8 (01:17→22:50)
[2019-09-04 03:40] VITALS: BP 117/76
[2019-09-04] MEDS: PIPERACILLIN/TAZOBACTAM 3.375 GM in IV NORMAL SALINE 50ML 50 ML IV SCH ×3 (05:32→21:27)
[2019-09-04 06:00] VITALS: BP 116/70
[2019-09-04] MEDS: ONDANSETRON PF 4 MG/2 ML VIAL. IVP PRN ×3 (06:19→17:09)
[2019-09-04] MEDS: NICOTINE 21MG PATCH. TD SCH (07:57)
[2019-09-04] MEDS: ENOXAPARIN ** NOTE DOSE ** SYRINGE SQ SCH ×2 (07:59→21:23)
[2019-09-04 09:03] LABS: VANC TR 3.1 mcg/mL (10.0-20.0)
[2019-09-04] MEDS: VANCOMYCIN PER PHARMACY MC PRN (09:51)
[2019-09-04] MEDS: VANCOMYCIN 1 GM in IV NORMAL SALINE 250ML 250 ML IV SCH ×3 (10:35→22:29)
[2019-09-04 11:57] LABS: ALBUMIN 2.4 g/dL (3.4-5.0); ALBUMIN/GLOBULIN RATIO 0.7 (1.0-1.7); CREATININE 0.6 mg/dL (0.6-1.0); GFR 113.1; POTASSIUM 3.2 mmol/L (3.5-5.1); TOTAL BILIRUBIN 0.4 mg/dL (0.2-1.0); TOTAL PROTEIN 5.9 g/dL (6.4-8.2)
[2019-09-04 12:03] VITALS: BP 117/63
--- NOTE | 2019-09-04 12:53 | PN ---
DATE: 09/04/2019 SUBJECTIVE: The patient is resting, slightly propped up in bed, in no apparent distress. She is awake, alert and talking. On questioning her, she is complaining of headache, but denied any other complaint. Nursing staff stated that she is only drinking water. She has not been able to eat anything so far. She continues to be on IV antibiotic as well as hydromorphone. We did order a total body bone scan, which basically showed that she has activities involving the proximal shaft of the right femur and adjacent soft tissues. This could be related to trauma and/or stress fracture. Solitary metastasis is not excluded. Correlation with radiographic studies recommended along with clinical correlation. PHYSICAL EXAMINATION: GENERAL: When I examined her this morning, she looked well and was clearly in no apparent distress. She was somewhat pale, but no jaundice, cyanosis or thyromegaly. No jugular venous distention. No limb edema. VITAL SIGNS: Her heart rate was 59, blood pressure was 116/70, temperature 98, respiratory rate was 18 and oxygen saturation was 95% on room air. HEAD, EYES, EARS, NOSE AND THROAT: Showed normocephalic, atraumatic. NECK: Supple. HEART: Showed normal first and second heart sounds with no gallop, rub or murmur. CHEST: Clear to auscultation. No crepitation or rhonchi. ABDOMEN: Distended, soft, nontender. NEUROLOGIC: She was definitely more awake, alert, responding appropriately. All her cranial nerves are intact. She moves extremities without difficulty, although she is mostly bedbound. My plan is to repeat her lab work and she has abnormal liver enzymes. I will also arrange for her to have a CT scan of the femur and we will decide further management accordingly. GAYLE ALFONSO MD DR: DELGADO/mehreen JOB#: [id number] / [id number]
[2019-09-04 13:25] LABS: HEMATOCRIT 31.7 % (36.0-47.0); HEMOGLOBIN 10.5 g/dL (12.0-15.5); RED BLOOD COUNT 3.74 x10^6/uL (3.50-5.40); RED CELL DISTRIBUTION WIDTH 14.3 % (11.5-14.5); WHITE BLOOD COUNT 13.1 x10^3/uL (4.0-11.0)
--- NOTE | 2019-09-04 14:56 | RAD ---
CT right hip dated 09/04/2019. Comparison made to bone scan dated 09/04/2019 Clinical data indication: Abnormal finding on bone scan FINDINGS: Contiguous axial imaging the right femur performed with thin cut coronal and sagittal reconstruction. One or more of the following individualized dose reduction techniques were utilized for this examination: 1. Automated exposure control 2. Adjustment of the mA and/or kV according to patient size 3. Use of iterative reconstruction technique FINDINGS: There is a zone of central radiolucency with subtle central sclerotic change involving the subtrochanteric right femur that likely correlates with bone scan findings. This study. The visualized but is estimated at about 3 cm maximum dimension. No periostitis or bone destruction. No pathologic fracture. The mid and distal femoral shaft is intact. Right hip joint unremarkable. Segura catheter within a collapsed urinary bladder. No free fluid or lymphadenopathy. Jud soft tissue structures otherwise unremarkable. IMPRESSION: There is a vague zone of radiolucency and sclerosis of the subtrochanteric right femur that appears to correlate with bone scan findings. This is of uncertain etiology and not typical for stress reaction. Neoplastic process cannot be excluded. Recommend MRI with and without contrast for better evaluation. Electronically signed by: Prieto Ly MD (09/04/2019 2:53 PM) [facility]
--- NOTE | 2019-09-04 15:45 | CARD ---
MR#: [id number] Date of Study: 09/04/2019 Ordering Physician: ISI HERNANDEZ, Referring Physician: ISI HERNANDEZ, Tech: Yaz Girffiths TAL APPROVED REPORT EXAM: Two-dimensional and M-mode echocardiogram with Doppler and color Doppler. Other Information Quality : Average INDICATION Chest Pain 2D DIMENSIONS Left Atrium(2D)3.0 (1.6-4.0cm)IVSd0.6 (0.7-1.1cm) Aortic Root(2D)2.2 (2.0-3.7cm)LVDd4.7 (3.9-5.9cm) LVOT Diameter1.8 (1.8-2.4cm)PWd0.6 (0.7-1.1cm) LVDs2.9 (2.5-4.0cm)FS (%) 37.7 % SV70.0 ml Aortic Valve AoV Peak Enzo.139.7cm/sAoV VTI27.5cm AO Peak GR.7.8mmHgLVOT Peak Enzo.118.4cm/s LVOT VTI 28.36cmAO Mean GR.5mmHg FIDELINA (VMAX)2.12qu6ZUY (VTI)2.52cm2 Mitral Valve MV E Hoauhwjo883.8cm/sMV DECEL IBJC145gj MV A Otnjupcu48.6cm/sE/A Ratio2.1 MV A Kawufbdt090nt TDI Lateral E' P. V0.19cm/sMedial E' P. V0.10cm/s E/Lateral E'667.4E/Medial E'1268.0 Tricuspid Valve TR P. Rewrqhcd613lv/sRAP ZVPZESAG6dfOu TR Peak Gr.64csJnNYHC75hnTy Pulmonary Vein S1 Dlmpttvo96.3cm/sD2 Vmuzafey73.3cm/s LEFT VENTRICLE The left ventricle is normal size. There is normal left ventricular wall thickness. The left ventricu lar systolic function is normal and the ejection fraction is within normal range. Left ventricular ej ection fraction is 55 to 60%. There is normal LV segmental wall motion. No left ventricle thrombus no moo on this study. There is no ventricular septal defect visualized. There is no left ventricular ane urysm. There is no mass noted in the left ventricle. RIGHT VENTRICLE The right ventricle is normal size. There is normal right ventricular wall thickness. The right ventr icular systolic function is normal. ATRIA The left atrium size is normal. The right atrium size is normal. The interatrial septum is intact wit h no evidence for an atrial septal defect or patent foramen ovale as noted on 2-D or Doppler imaging. AORTIC VALVE The aortic valve is normal in structure and function. Color Flow revealed mild aortic regurgitation.D o to patient not cooperating well, AI could not be assessed well. There is no significant aortic valv ular stenosis. There is no aortic valvular vegetation. MITRAL VALVE The mitral valve is normal in structure and function. There is no evidence of mitral valve prolapse. There is no mitral valve stenosis. Doppler and Color-flow revealed mild mitral regurgitation. TRICUSPID VALVE The tricuspid valve is normal in structure and function. Doppler and Color Flow revealed trace to mil d tricuspid regurgitation. There is no tricuspid valve prolapse or vegetation. There is no tricuspid valve stenosis. PULMONIC VALVE The pulmonary valve is normal in structure and function. There is no pulmonic valvular stenosis. GREAT VESSELS The aortic root is normal in size. The IVC is normal in size and collapses >50% with inspiration. PERICARDIAL EFFUSION There is no pleural effusion. There is no evidence of significant pericardial effusion. Critical Notification Critical Value: No <Conclusion> The left ventricle is normal size. The left ventricular systolic function is normal and the ejection fraction is within normal range. Left ventricular ejection fraction is 55 to 60%. There is normal left ventricular wall thickness. Color Flow revealed mild aortic regurgitation.Do to patient not cooperating well, AI could not be ass essed well. There is no significant aortic valvular stenosis. Doppler and Color-flow revealed mild mitral regurgitation. Doppler and Color Flow revealed trace to mild tricuspid regurgitation. Signed by : Jan Rosenbaum MD Electronically Approved : 09/04/2019 15:45:08
[2019-09-04 16:00] VITALS: BP 127/80
[2019-09-04 19:06] VITALS: BP 130/81
[2019-09-04 22:52] VITALS: BP 142/84
[2019-09-05] MEDS: IV NORMAL SALINE 1,000ML 1,000 ML IV SCH ×2 (01:05→14:25)
[2019-09-05] MEDS: HYDROmorphone PF 2 MG/ML VIAL IV PRN ×7 (02:15→20:39)
[2019-09-05 05:59] VITALS: BP 143/86
[2019-09-05] MEDS: PIPERACILLIN/TAZOBACTAM 3.375 GM in IV NORMAL SALINE 50ML 50 ML IV SCH ×3 (06:19→20:55)
[2019-09-05 07:23] LABS: VANC TR 12.7 mcg/mL (10.0-20.0)
[2019-09-05] MEDS: VANCOMYCIN 1 GM in IV NORMAL SALINE 250ML 250 ML IV SCH (08:05)
[2019-09-05] MEDS: NICOTINE 21MG PATCH. TD SCH (08:06)
[2019-09-05] MEDS: ENOXAPARIN ** NOTE DOSE ** SYRINGE SQ SCH ×2 (08:06→20:40)
[2019-09-05] MEDS: VANCOMYCIN PER PHARMACY MC PRN (09:54)
[2019-09-05 10:49] VITALS: BP 143/86
[2019-09-05] MEDS ORDERED: IOHEXOL 350 MG/ML 100 ML VIAL. IV ONE (11:30)
--- NOTE | 2019-09-05 12:46 | RAD ---
CTA chest with contrast dated 09/05/2019. No comparison available. CLINICAL INDICATION: Elevated d-dimer and hypoxia. TECHNIQUE: Contiguous axial imaging the chest performed following the intravenous administration of 98 cc Isovue-370. Study performed as dedicated PE protocol with thin cut coronal MIPS 3-D reconstruction One or more of the following individualized dose reduction techniques were utilized for this examination: 1. Automated exposure control 2. Adjustment of the mA and/or kV according to patient size 3. Use of iterative reconstruction technique FINDINGS: Contrast bolus is adequate. There is a tiny filling defect within the distal main pulmonary artery on the left with nonocclusive filling defect in the posterior basal segmental pulmonary artery on the right. No additional filling defects are identified. Heart size is within normal limits. No pericardial effusion. No mediastinal, hilar or axillary lymphadenopathy. Thyroid gland unremarkable. Central airways are patent. Patchy areas of consolidation in the posterior aspect of the right upper lobe and dependent right lower lobe with mild patchy increased density at the left base. No significant pleural effusion. No pneumothorax. Mild patchy groundglass opacity along the bronchovascular bundles of the left upper lobe. Limited images of the upper abdomen are unremarkable. No acute bony abnormality. IMPRESSION: 1. There are small nonocclusive pulmonary emboli involving the distal left main pulmonary artery and posterior basal segmental pulmonary artery on the right. 2. Patchy areas of consolidation in the bilateral upper lobe and bilateral lower lobe, atelectasis versus pneumonia. Results discussed with nurse caring for patient at approximately 12:40 PM on the day of the exam. Electronically signed by: Prieto Ly MD (09/05/2019 12:43 PM) [facility]
--- NOTE | 2019-09-05 12:56 | PN ---
DATE: 09/05/2019 SUBJECTIVE: The patient is resting, slightly propped up in bed. She is definitely more awake, alert, lucid, oriented to time, place and person. She did give account of her life and all which has gone through to our nurse in charge. We did actually a CT scan of her right lower extremity given the finding. The bone scan did show that the patient has a vague ____ radiolucency and sclerosis of the subtrochanteric area of the right femur that appears to correlate with bone scan finding. This is of uncertain etiology and not typical of stress reaction, neoplastic process cannot be excluded and they recommended MRI with and without contrast for better evaluation. The patient herself did not want to do any further testing or any treatment. She seems to be extremely depressed and basically wanted to . According to her DPOA, she opted for hospice that will help her to achieve her goal. On questioning her about pain, her pain is mostly migraine headache. I questioned her whether she has used any medication from specific for migraine like Imitrex. She said that all of them do not work and the only thing that works for her headache is Dilaudid. She is apparently legally , but her refused to divorce her and apparently social workers at [facility] attempted to help her to get insurance, but according to her, she does not have enough credit. I asked her where will she go if we discharge her, she just is going to go home to stay with her boyfriend. PHYSICAL EXAMINATION: GENERAL: When I examined her this morning, she looked well and was clearly in no apparent distress, somewhat pale, but no jaundice, cyanosis or thyromegaly. No jugular venous distention. No limb edema. VITAL SIGNS: Her heart rate was 81, blood pressure was 143/86, temperature was 98, respiratory rate was 16, and oxygen saturation was 95% on room air. HEAD, EYES, EARS, NOSE AND THROAT: Showed normocephalic and atraumatic. NECK: Supple. HEART: Showed normal first and second heart sounds. No gallop, rub or murmur. CHEST: Clear to auscultation. No crepitation or rhonchi. ABDOMEN: Distended, soft, and nontender. No guarding or rigidity. No organomegaly. All hernial orifice intact. Bowel sounds normal. NEUROLOGIC: She was definitely more awake, alert, lucid and oriented to time, place and person. All cranial nerves are intact. She moves extremities without difficulty. Her intake was 2640, output was 700. LABORATORY DATA: Her lab work as of yesterday, her white cell count is down to 13,000; hemoglobin 11; hematocrit 32; MCV 85; and platelet count 202,000. Her chemistry showed a serum sodium 142, potassium 3.2, chloride 106, bicarbonate 24, anion gap of 12, BUN 9, creatinine 0.6, estimated GFR was 113. Her glucose 102, calcium was 8. Total bilirubin and alkaline phosphatase is normal. AST and ALT elevated, but trending down. Her total protein was 5.9, albumin 2.4. Her D-dimer was high. Urinalysis showed the urine was unremarkable. Her vancomycin was within therapeutic range at 12.7. So far, her blood cultures showed no growth after 2 days. I will discontinue her vancomycin. Continue with Zosyn for now, and I will consult Physical and Occupational Therapy. We will replenish her potassium and we will consult our adult protective caseworker and perhaps [facility] to see whether they can be of assistance for her depression. GAYLE ALFONSO MD DR: DELGADO/mehreen JOB#: [id number] / [id number]
[2019-09-05] MEDS: POTASSIUM CHLORIDE 20 MEQ TABLET.ER. PO SCH ×2 (13:57→20:40)
[2019-09-05] MEDS ORDERED: VANCOMYCIN 1.25 GM in IV NORMAL SALINE 250ML 250 ML IV SCH (14:00)
[2019-09-05 15:19] VITALS: BP 134/81
[2019-09-05 19:04] VITALS: BP 125/87
[2019-09-05] MEDS: ONDANSETRON PF 4 MG/2 ML VIAL. IVP PRN (20:39)
[2019-09-06 01:31] VITALS: BP 133/88
[2019-09-06] MEDS: HYDROmorphone PF 2 MG/ML VIAL IV PRN ×9 (01:33→23:25)
[2019-09-06 05:02] VITALS: BP 132/73
[2019-09-06] MEDS: PIPERACILLIN/TAZOBACTAM 3.375 GM in IV NORMAL SALINE 50ML 50 ML IV SCH ×3 (05:50→20:06)
[2019-09-06 06:07] LABS: HEMATOCRIT 31.1 % (36.0-47.0); HEMOGLOBIN 10.4 g/dL (12.0-15.5); RED BLOOD COUNT 3.68 x10^6/uL (3.50-5.40); RED CELL DISTRIBUTION WIDTH 14.2 % (11.5-14.5)
[2019-09-06 06:24] LABS: ALBUMIN/GLOBULIN RATIO 0.6 (1.0-1.7); CALCIUM 7.7 mg/dL (8.5-10.1); CREATININE 0.7 mg/dL (0.6-1.0); GFR 94.7; TOTAL BILIRUBIN 0.2 mg/dL (0.2-1.0); TOTAL PROTEIN 5.3 g/dL (6.4-8.2)
[2019-09-06] MEDS ORDERED: POTASSIUM CHLORIDE 20 MEQ TABLET.ER. PO ONE (07:30)
[2019-09-06] MEDS: IV NORMAL SALINE 1,000ML 1,000 ML IV SCH (08:07)
[2019-09-06] MEDS: ENOXAPARIN ** NOTE DOSE ** SYRINGE SQ SCH (08:09)
[2019-09-06] MEDS: NICOTINE 21MG PATCH. TD SCH (08:10)
[2019-09-06] MEDS: POTASSIUM CL 40MEQ D5-0.45NACL 1,000 ML IV SCH ×2 (10:00→23:24)
[2019-09-06] MEDS: POTASSIUM CHLORIDE 20 MEQ TABLET.ER. PO SCH ×5 (10:26→20:04)
[2019-09-06] MEDS: APIXABAN 5 MG TABLET. PO SCH ×2 (10:26→20:04)
[2019-09-06 10:28] VITALS: BP 126/80
--- NOTE | 2019-09-06 10:45 | PN ---
DATE: 09/06/2019 SUBJECTIVE: The patient is resting, slightly propped up in bed, no apparent distress. She continued to complain of headache that responds only to Dilaudid. We did CT angio of the chest, which showed that she has small nonocclusive pulmonary emboli involving the distal left main pulmonary artery and posterior basilar segmental pulmonary artery on the right side. She also has patchy areas of consolidation in the bilateral upper lobes and bilateral lower lobes, atelectasis versus pneumonia. She refused to be tested for COVID-[address]. [address] scan of the right lower extremity showed also a vague zone of radiolucency and sclerosis of the subtrochanteric right femur that appears to correlate with bone scan finding. This is of uncertain etiology, not typical stress reaction, neoplastic process cannot be excluded; however, the patient does not want to do any further testing. She continued to drink, but her oral intake is generally poor. PHYSICAL EXAMINATION: GENERAL: When I saw her this morning, she was resting slightly propped up in bed, in no apparent respiratory distress, pale, cachectic, but no jaundice, cyanosis or thyromegaly. No jugular venous distention. No limb edema. VITAL SIGNS: Her heart rate was 69, blood pressure was 132/73, temperature was 98.5, respiratory rate was 18, and oxygen saturation was 100% on 1 liter of oxygen. HEAD, EYES, EARS, NOSE AND THROAT: Normocephalic, atraumatic. NECK: Supple. HEART: Showed normal first and second heart sounds. No gallop or murmur. CHEST: Clear to auscultation. No crepitation or rhonchi. ABDOMEN: Distended, soft, nontender. No guarding or rigidity. No organomegaly. All hernial orifice intact. Bowel sounds normal. NEUROLOGIC: She was lethargic, but arousable. All cranial nerves intact. She moves extremities spontaneously; however, she is mostly bedbound. Her intake over the last 24 hours was 2080, output was 700. LABORATORY DATA: As of this morning, her white cell count is 10,000, hemoglobin 10, hematocrit 31, MCV 85 and platelet count 315,000. Her chemistry showed serum sodium 142, potassium 3, chloride 107, bicarbonate 28, anion gap of 7, BUN 7, creatinine 0.7, estimated GFR was 94 mL per minute. Her glucose 147, calcium was 7.7. Her total bilirubin and alkaline phosphatase normal. AST, ALT slightly elevated, but trending down. Her total protein was 5.3, albumin 2. ASSESSMENT: 1. 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 2. Possible metastatic lesion in the right subtrochanteric area of the right femur. 3. She has bilateral pulmonary emboli. 4. Aspiration pneumonia. 5. Severe protein-calorie malnutrition with serum albumin is only 2 g/dL. 6. Hypokalemia, which we will replenish her potassium. PLAN: My plan is to change IV fluid with D5 half normal with 40 mEq of potassium chloride and increase potassium orally to 20 mEq 3 times a day. I discontinued the Lovenox and switched her to apixaban. Tomorrow, I will discontinue the IV Zosyn and switch her to Augmentin and we discussed the disposition with the social and human services assistant. GAYLE ALFONSO MD DR: DELGADO/mehreen JOB#: [id number] / [id number]
[2019-09-06 14:25] VITALS: BP 97/59
[2019-09-06 19:23] VITALS: BP 116/77
[2019-09-06 22:35] VITALS: BP 126/85
[2019-09-07] MEDS: HYDROmorphone PF 2 MG/ML VIAL IV PRN ×5 (02:31→12:45)
[2019-09-07 05:14] VITALS: BP 128/84
[2019-09-07] MEDS: PIPERACILLIN/TAZOBACTAM 3.375 GM in IV NORMAL SALINE 50ML 50 ML IV SCH (05:39)
[2019-09-07 06:05] LABS: CALCIUM 8.3 mg/dL (8.5-10.1); CREATININE 0.6 mg/dL (0.6-1.0); GFR 113.1; POTASSIUM 4.4 mmol/L (3.5-5.1)
[2019-09-07] MEDS: APIXABAN 5 MG TABLET. PO SCH ×2 (08:22→20:50)
[2019-09-07] MEDS: POTASSIUM CHLORIDE 20 MEQ TABLET.ER. PO SCH ×2 (08:22)
[2019-09-07] MEDS: NICOTINE 21MG PATCH. TD SCH ×2 (08:22→08:36)
[2019-09-07] MEDS ORDERED: LACTOBACILLUS RHAMNOSUS GG 1 CAPSULE. PO SCH (09:00)
[2019-09-07 10:02] VITALS: BP 120/78
--- NOTE | 2019-09-07 11:48 | PDOC ---
SHANE ADAMS SALES ASSOCIATE 09/07/19 1147: CARDIO Progress Notes Date & Time Date of Service DATE: 09/07/19 TIME: 11:28 Time of Evaluation 11:28 Subjective Notes c/o blurred vision and headache Denies any chest pain, shortness of breath, dizziness Vitals Vitals Vital Signs Date Time Temp Pulse Resp B/P (MAP) Pulse Ox O2 Delivery O2 Flow Rate FiO2 09/07/19 10:02 58 20 120/78 (92) 94 Nasal Cannula 1.0 09/07/19 05:14 97.7 Weight Weight [ ] Input and Output I.O. Intake and Output 09/07/19 07:00 Intake Total 1530 ml Output Total 2600 ml Balance -1070 ml Intake Oral 480 ml IV Total 1050 ml Output Urine Total 2600 ml # Bowel Movements 1 Laboratory Labs Laboratory Tests Test 09/06/19 05:51 09/07/19 05:37 White Blood Count 10.0 x10^3/uL (4.0-11.0) Red Blood Count 3.68 x10^6/uL (3.50-5.40) Hemoglobin 10.4 g/dL (12.0-15.5) Hematocrit 31.1 % (36.0-47.0) Mean Corpuscular Volume 85 fL (79-100) Mean Corpuscular Hemoglobin 28 pg (25-35) Mean Corpuscular Hemoglobin Concent 34 g/dL (31-37) Red Cell Distribution Width 14.2 % (11.5-14.5) Platelet Count 315 x10^3/uL (140-400) Sodium Level 142 mmol/L (136-145) 139 mmol/L (136-145) Potassium Level 3.0 mmol/L (3.5-5.1) 4.4 mmol/L (3.5-5.1) Chloride Level 107 mmol/L (98-107) 107 mmol/L (98-107) Carbon Dioxide Level 28 mmol/L (21-32) 26 mmol/L (21-32) Anion Gap 7 (6-14) 6 (6-14) Blood Urea Nitrogen 7 mg/dL (7-20) 3 mg/dL (7-20) Creatinine 0.7 mg/dL (0.6-1.0) 0.6 mg/dL (0.6-1.0) Estimated GFR (Cockcroft-Gault) 94.7 113.1 BUN/Creatinine Ratio 10 (6-20) Glucose Level 147 mg/dL (70-99) 120 mg/dL (70-99) Calcium Level 7.7 mg/dL (8.5-10.1) 8.3 mg/dL (8.5-10.1) Total Bilirubin 0.2 mg/dL (0.2-1.0) Aspartate Amino Transf (AST/SGOT) 45 U/L (15-37) Alanine Aminotransferase (ALT/SGPT) 81 U/L (14-59) Alkaline Phosphatase 55 U/L (46-116) Total Protein 5.3 g/dL (6.4-8.2) Albumin 2.0 g/dL (3.4-5.0) Albumin/Globulin Ratio 0.6 (1.0-1.7) Microbiology Micro Microbiology 09/02/19 Blood Culture - Preliminary, Resulted NO GROWTH AFTER 4 DAYS... Physical Exams HEENT: Neck Supple W Full Motion Chest: Symmetric Lungs: Clear to Auscultation Heart: S1S2, RRR Neurology: alert, follow commands, other (flat affect ) Assessment Assessment 1. Endometrial and cervical CA; patient reports this as "terminal". Bone scan cannot rule out metastatic lesion in the right femur. 2. Chronic pain, migraines; IV Dilaudid 3. Chest pain, elevated troponin; highest 0.5. EKG with diffuse ST changes suggestive of ischemia. CP has resolved. Echo with preserved LV systolic function 4. Elevated d-dimer; CTA with small bilateral nonocclusive PE. On Eliquis therapy. 5. Leukocytosis, probable aspiration PNA; IV antibiotic therapy 6. Hypokalemia; replaced 7. Elevated LFTs 8. Diabetes, II 9. Metabolic encephalopathy; ? withdrawal Recommendations OAC as per PCP Supportive care No further workup from a CV standpoint Please call with questions. ISI HERNANDEZ MD 09/07/19 9728: CARDIO Progress Notes Plan Plan Patient seen and examined. Agree with above nurse practitioner note. I spoke with her surgical oncologist from [facility] today It is unclear if the patient ever received treatment for her cancer. CT scan at this facility has been unrevealing Nonetheless, her echocardiogram is unremarkable. Nothing further from a cardiac standpoint. If and when she is deemed to be a non-terminal cancer diagnosis at that time could consider stress testing. Poor prognosis given prior drug addiction issues. Please call with any further questions SHANE ADAMS APRN September 07, 2019 11:47 ISI HERNANDEZ MD September 07, 2019 17:03
[2019-09-07] MEDS: POTASSIUM CL 40MEQ D5-0.45NACL 1,000 ML IV SCH (12:40)
[2019-09-07] MEDS ORDERED: HYDR4TAB PO (13:08)
[2019-09-07] MEDS ORDERED: AMOX1TAB61 PO (13:08)
[2019-09-07] MEDS ORDERED: AMOXICILLIN/K CLAV 875/125MG TABLET. PO ONE (14:00)
[2019-09-07] MEDS: HYDROmorphone 2 MG TABLET PO PRN ×3 (14:40→20:50)
--- NOTE | 2019-09-07 15:13 | DS ---
DATE OF DISCHARGE: 09/07/2019 HOSPITAL COURSE: The patient is a 34-year-old female patient who was admitted through the Emergency Room with a complaint of chest pain. Apparently, she has been having intermittent chest discomfort described as tightness and spasming sensation. She has had an episode where she felt suddenly weak, collapsed into the floor and felt like she had a cramping muscle all over. Pain radiated up into her chest and her chest pain lasted about 40 minutes and began to subside right before EMS transport. She said that she had heart attack in the past, although difficult to substantiate that. She stated that she has terminal cervical and uterine cancer. She is on high dose pain medication and she did have a tunneled PICC line to the right internal jugular vein. She apparently was in [facility] and as she was on a huge amount of pain medication, they recommended that she go to hospice house, but she refused and therefore, they discharged her. When she came to the Emergency Room, her D-dimer was high at 2.56. Her toxic screen was positive for opiates and barbiturates. Her chest x-ray was unremarkable; however, we attempted to do CT angio of the chest at that time, she was extremely agitated, restless, combative and we could not do that, so instead, we started her on Lovenox 1 mg/kg subcutaneously twice a day. Given that she was on hospice and [facility] recommended hospice house, based on the fact that she has terminal uterine and cervical cancer, we did actually a CT scan of the chest, abdomen and pelvis as well as CT scan of the head. The CT scan of the abdomen and pelvis showed that it was unremarkable except for mild consolidative and ground-glass opacity in the posterior right upper lobe suspicious for pneumonia. She did have a small right-sided pleural effusion and right basilar atelectasis. So, the patient was started on IV antibiotic for aspiration pneumonia. We did a total body bone scan, which was mostly unremarkable except for activity seen involving the proximal shaft of the right femur adjacent soft tissue. This could be related to trauma and/or stress fracture. Solitary metastasis is not excluded. Correlation with radiographic studies recommended along with clinical correlation. The patient refused any further investigation. We did CT scan of the right lower extremity, which showed there is a vague zone of radiolucency and sclerosis in the subtrochanteric right femur that appears to correlate with bone scan finding. This is of uncertain etiology and not typical for stress reaction. A neoplastic process cannot be excluded. Recommended MRI with and without contrast for better evaluation, but the patient refused to do any further testing. After the patient became more awake and lucid, she agreed to CT angio of the chest, which basically showed that the patient has small nonocclusive pulmonary emboli involving the distal left main pulmonary artery and posterior basal segmental pulmonary artery in the right and patchy areas of consolidation in the bilateral upper lobe and bilateral lower lobe atelectasis versus pneumonia. So, in summary, we do not have any really evidence that the patient has terminal cancer. Furthermore, Dr. May spoke with the oncologist at [facility] who apparently feels that the patient must have received treatment somewhere and she no longer has the cancer and in fact she has been seen at [facility] and also [facility], where she has the tunneled PICC line placed. The CT scan of the head, chest, abdomen and pelvis did not show any evidence of any metastasis. The bone scan other than the finding on the shaft of the right femur did not show any other abnormality. The patient is now awake, alert. She is able to walk with a walker. She is now able to eat, although she needs to be fed. We took the catheter out and was able to urinate without difficulty and was able to walk to the bathroom with standby assist. Her COVID-19 test was negative. When I saw her today, she was resting slightly propped up in bed, in no apparent respiratory distress, awake, alert, responding appropriately. She complained that she is having blurring of vision, apparently has complained to the nursing staff about that, although I was not aware of it and at least in the first 3 days, the patient was completely unresponsive. In any case, unfortunately, we do not have any glove wrapper to see her, although her pupils are reactive to light and accommodation and she has been hemodynamically stable, afebrile. Her white cell count is normal. Her kidney function is normal and her liver enzymes are normalizing. A decision was made to discharge her home, as she is living with her boyfriend. We will be discharging her on Eliquis 5 mg twice a day. I explained to her that they can only give her limited supply of hydromorphone and she has to follow with her oncologist at [facility] as apparently that is the place where she has been followed for her endometrial and cervical cancer and I spoke with her DPOA and explained to her that the patient needs to be on at least Medicare to have insurance and transpired that she is still and her refusing to divorce her. PHYSICAL EXAMINATION: GENERAL: When I examined her this afternoon, she looked well and was clearly in no apparent respiratory distress or pale, not jaundiced, cyanosis or thyromegaly. No jugular venous distention. No limb edema. VITAL SIGNS: Her heart rate was 58, blood pressure was 120/78, temperature was 97.7, respiratory rate 20, and oxygen saturation was 94% on 1 liter of oxygen. HEAD, EYES, EARS, NOSE AND THROAT: Showed normocephalic, atraumatic. NECK: Supple. HEART: Showed normal first and second heart sounds. No gallop, rub or murmur. CHEST: Clear to auscultation. No crepitation or rhonchi. ABDOMEN: Distended, soft, nontender. NEUROLOGIC: She is awake, alert, responding appropriately. All her cranial nerves intact. She moves extremities without difficulty. She ambulates with a walker with standby assist. Her intake over the last 24 hours was 1175, output was 1150. LABORATORY DATA: As of yesterday, her white cell count was 10,000, hemoglobin 10, hematocrit 31, MCV 85 and platelet count 315,000. Serum sodium was 139, potassium 4.4, chloride 107, bicarbonate 26, anion gap of 6, BUN 3, creatinine 0.6, estimated GFR was 113 mL per minute. Her glucose was 120 and calcium was 8.3. As of yesterday, her bilirubin and alkaline phosphatase were normal. AST and ALT are slightly elevated, but trending down, likely due to side effect of antibiotic. Her total protein was 5.3, albumin 2. Her D-dimer was 2.56. Urinalysis was essentially unremarkable. Toxic screen was positive for opiates and barbiturates. Her COVID test was negative. As I stated, her CT angio show that she has ____ small nonocclusive pulmonary emboli involving the distal left main pulmonary artery and posterior basilar segmental pulmonary artery on the right side with patchy pulmonary infiltrate. CT scan of the head, chest, abdomen and pelvis was basically unremarkable except for probably aspiration pneumonia involving the posterior segment of the right upper lobe. Total body bone scan showed activity seen involving the proximal shaft of the right femur and adjacent soft tissues. This could be related to trauma and/or stress fracture. Solitary metastasis not excluded. Correlation with radiographic studies recommended along with clinical correlation. The patient was discharged home to continue on apixaban 5 mg twice a day for 10 more days, hydromorphone 4 mg every 3 hours for 3 days, ____ twice a day for a few months. Should continue with albuterol sulfate, ProAir 1 puff every 6 hours. FINAL DISCHARGE DIAGNOSES: 1. 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 2. Possible metastatic lesion in the right subtrochanteric area of the right femur. 3. She has bilateral pulmonary emboli. 4. Aspiration pneumonia. 5. Severe protein-calorie malnutrition, serum albumin is only 2 g/dL. 6. Hypokalemia, resolved. I feel the patient was put on hospice for no obvious reason. I spoke with our social work job titles and as her management is inappropriate, we need probably to contact the appropriate authorities to investigate this mismanagement of this young lady that was already wished to go to hospice house while in fact there is no clear-cut evidence of tumor and she is certainly not terminal. GAYLE ALFONSO MD DR: DELGADO/mehreen JOB#: [id number] / [id number]
[2019-09-07 17:05] VITALS: BP 128/80
== END 2019-09-07 21:00 | disposition home or self-care (01) | DRG 177 ==
LOC: ER 01:03 → ICU 02:30 → UNDODISIN 09-03 15:20 → 1 SOUTH 09-03 17:53
PROVIDERS: ADMIT Internal Medicine; ATTEND Internal Medicine
DX: J69.0 Pneumonitis due to inhalation of food and vomit (principal); E43 Unspecified severe protein-calorie malnutrition; I26.99 Other pulmonary embolism without acute cor pulmonale; J90 Pleural effusion, not elsewhere classified; J98.11 Atelectasis; C53.9 Malignant neoplasm of cervix uteri, unspecified; C54.1 Malignant neoplasm of endometrium; E11.9 Type 2 diabetes mellitus without complications; E83.42 Hypomagnesemia; E87.6 Hypokalemia; F17.210 Nicotine dependence, cigarettes, uncomplicated; F41.9 Anxiety disorder, unspecified; G43.909 Migraine, unspecified, not intractable, without status migrainosus; G89.29 Other chronic pain; I25.2 Old myocardial infarction; J45.909 Unspecified asthma, uncomplicated; Z20.828 Contact with and (suspected) exposure to other viral communicable diseases; Z53.20 Procedure and treatment not carried out because of patient's decision for unspecified reasons; Z51.5 Encounter for palliative care; Z66 Do not resuscitate; Z79.01 Long term (current) use of anticoagulants; Z80.9 Family history of malignant neoplasm, unspecified; Z82.49 Family history of ischemic heart disease and other diseases of the circulatory system; Z85.41 Personal history of malignant neoplasm of cervix uteri; Z83.3 Family history of diabetes mellitus; Z85.42 Personal history of malignant neoplasm of other parts of uterus; Z90.710 Acquired absence of both cervix and uterus; Z88.8 Allergy status to other drugs, medicaments and biological substances; Z79.899 Other long term (current) drug therapy
CPT/HCPCS: 36415; 70450; 71045; 71250; 71275; 73700; 74176; 78306; 80048; 80053; 80061; 80202; 80307; 81001; 82947; 83735; 84132; 84443; 84484; 85025; 85027; 85379; 87040; 93005; 93306; 96374; A9503; J0456; J0696; J1170; J1650; J2060; J2405; J2543; J3370; J3475; J3480; J7040; J7042; J7050; Q9967; 97116; 97530; 97535; 99285-25; J7030; U0003-CS